=== PATIENT | female | born 1965 | race Caucasian/White ===

== ENCOUNTER 2017-12-31 15:28 | Emergency (ER) | payer OTHER ==
[~2017-12-31] VITALS: Ht 165.1 cm; Wt 59.5 kg
[2017-12-31 15:53] LABS: HEMATOCRIT 35.7 % (36.0-46.0); HEMOGLOBIN 12.7 G/DL (11.9-15.5); MCH 31.1 PG (29.0-34.0); MCHC 35.6 G/DL (30.0-36.0); MCV 87.5 FL (83-99); PLATELET COUNT 156 K/uL (156-360); RBC DIS.WIDTH-CV 12.9 % (11.8-14.6); RBC DIS.WIDTH-SD 41.7 % (39-53); RED BLOOD COUNT 4.08 M/uL (3.80-5.20); WHITE BLOOD COUNT 7.3 K/uL (4.1-10.2)
[2017-12-31 16:06] LABS: CHLORIDE 108 mEq/L (99-109); POTASSIUM 3.9 mEq/L (3.7-5.4); SODIUM 139 mEq/L (136-147)
[2017-12-31 16:08] LABS: GLUCOSE 169 mg/dL (70-99)
[2017-12-31 16:11] LABS: CREATININE 0.8 mg/dL (0.6-1.3)
[2017-12-31 16:12] LABS: UREA NITROGEN (BUN) 10 mg/dL (9-23)
[2017-12-31 16:14] LABS: GFR ESTIMATE (CALCULATED) > 59 mL/min/
[2017-12-31 16:16] LABS: TROP-I INTERPRETATION NEGATIVE; TROPONIN-I < 0.01 ng/mL (0.0-0.30)
[2017-12-31 17:40] LABS: MAGNESIUM 2.2 mg/dL (1.3-2.7)
[2017-12-31 18:11] VITALS: BP 146/64
[2017-12-31 20:01] LABS: THYROTROPIN (TSH) 0.72 MIU/L (0.4-5.5)
== END 2017-12-31 18:22 | disposition home or self-care (01) ==
LOC: EME 15:28
DX: I49.3 Ventricular premature depolarization (principal); R00.2 Palpitations
CPT/HCPCS: 71046; 80048; 83735; 84439; 84443; 84484; 85027; 93005; 99281; 99284